=== PATIENT | male | born 1950 | race Caucasian/White ===

== ENCOUNTER 2020-03-12 13:25 | Inpatient (IN) | payer MEDICARE, BC ==
[2020-03-11 21:00] VITALS: BP 160/74
[~2020-03-12] VITALS: Ht 177.8 cm; Wt 86.4 kg
[2020-03-12] MEDS ORDERED: PANTOPRAZOLE 40 MG 10ML VIAL IV STA (13:48)
[2020-03-12] MEDS ORDERED: ASPIRIN 81 MG CHEW TAB PO ONE (14:00)
[2020-03-12 14:06] LABS: BASOPHILS # (AUTO) 0.1 (0.0-0.1); BASOPHILS % 0.6 % (0.0-1.0); EOSINOPHILS # (AUTO) 0.2 (0.0-0.4); EOSINOPHILS % 2.2 % (0.0-6.0); HEMATOCRIT 47.7 % (38.2-49.6); HEMOGLOBIN 15.7 g/dL (14.0-18.0); INR 0.91; LYMPHOCYTES # (AUTO) 1.6 (1.0-3.2); LYMPHOCYTES % 19.9 % (18.0-39.1); MEAN CORPUSCULAR HEMOGLOBIN 29.5 pg (28-32); MEAN CORPUSCULAR HGB CONC 32.9 g/dL (31-35); MEAN CORPUSCULAR VOLUME 89.7 fL (81-99); MONOCYTES # (AUTO) 0.4 (0.2-0.8); MONOCYTES % 5.1 % (4.4-11.3); NEUTROPHILS # (AUTO) 5.9 (2.1-6.9); NEUTROPHILS % 71.6 % (38.7-80.0); PLATELET COUNT 262 x10e3/uL (140-360); PROTHROMBIN TIME 12.7 seconds (11.9-14.5); RED BLOOD COUNT 5.32 x10e6/uL (4.3-5.7); RED CELL DISTRIBUTION WIDTH 13.5 % (11.7-14.4)
[2020-03-12 14:15] LABS: ALANINE AMINOTRANSFERASE 31 IU/L (0-55); ALBUMIN 4.7 g/dL (3.5-5.0); ALBUMIN/GLOBULIN RATIO 1.4 (0.8-2.0); ALKALINE PHOSPHATASE 77 IU/L (40-150); ANION GAP 14.7 mmol/L (8-16); CALCIUM 9.4 mg/dL (8.4-10.2); CARBON DIOXIDE 26 mmol/L (22-29); CHLORIDE 102 mmol/L (98-107); CREATINE KINASE 88 IU/L (30-200); CREATININE, SERUM 1.11 mg/dL (0.72-1.25); EST GLOMERULAR FILTRATION RATE > 60 ML/MIN (60-); GLUCOSE 152 mg/dL (74-118); MAGNESIUM 2.2 MG/DL (1.3-2.1); POTASSIUM 3.7 mmol/L (3.5-5.1); SODIUM 139 mmol/L (136-145)
[2020-03-12 14:20] LABS: BLOOD UREA NITROGEN < 2 mg/dL (7-26); BUN/CREATININE RATIO 2 (6-25)
[2020-03-12] MEDS ORDERED: FAMOTIDINE 20 MG/2 ML VIAL IV SCH (15:45)
[2020-03-12] MEDS ORDERED: ONDANSETRON HCL INJ 2MG/ML 2ML 2 MG/ML VIAL IV PRN (15:45)
[2020-03-12] MEDS ORDERED: NITROGLYCERIN 0.4 MG SUBL SL PRN (15:45)
[2020-03-12] MEDS ORDERED: MORPHINE SULFATE INJ 2 MG/ML SYR IV PRN (15:45)
[2020-03-12] MEDS ORDERED: HYDRALAZINE HCL 20 MG/ML VIAL IV PRN (17:00)
[2020-03-12] MEDS ORDERED: ACETAMINOPHEN 325 MG TAB PO PRN (17:00)
[2020-03-12] MEDS ORDERED: POLYETHYLENE GLYCOL 3350 17 GM PACK PO PRN (17:00)
[2020-03-12] MEDS ORDERED: TEMAZEPAM 7.5 MG CAP PO PRN (17:00)
[2020-03-12] MEDS ORDERED: CLOPIDOGREL BISULFATE 75 MG TAB PO ONE (18:55)
[2020-03-12] MEDS: DOCUSATE SODIUM 100 MG CAP PO SCH (20:00)
[2020-03-12] MEDS ORDERED: AMLODIPINE BESY10 MG PO (20:13)
[2020-03-12] MEDS: FAMOTIDINE 20 MG/2 ML VIAL IV SCH (20:14)
[2020-03-12 20:22] VITALS: BP 160/74
[2020-03-12] MEDS ORDERED: TEMAZEPAM 15 MG CAP PO PRN (21:00)
[2020-03-12 23:50] LABS: CREATINE KINASE 62 IU/L (30-200)
[2020-03-13] VITALS (12 sets, daily range): BP systolic 108–149; BP diastolic 59–77
[2020-03-13 06:43] LABS: BASOPHILS # (AUTO) 0.1 (0.0-0.1); BASOPHILS % 0.7 % (0.0-1.0); EOSINOPHILS # (AUTO) 0.3 (0.0-0.4); EOSINOPHILS % 4.3 % (0.0-6.0); HEMATOCRIT 43.4 % (38.2-49.6); HEMOGLOBIN 14.1 g/dL (14.0-18.0); LYMPHOCYTES % 30.4 % (18.0-39.1); MEAN CORPUSCULAR HEMOGLOBIN 28.6 pg (28-32); MEAN CORPUSCULAR HGB CONC 32.5 g/dL (31-35); MONOCYTES # (AUTO) 0.8 (0.2-0.8); MONOCYTES % 11.3 % (4.4-11.3); NEUTROPHILS # (AUTO) 3.6 (2.1-6.9); PLATELET COUNT 243 x10e3/uL (140-360); RED BLOOD COUNT 4.93 x10e6/uL (4.3-5.7); RED CELL DISTRIBUTION WIDTH 13.8 % (11.7-14.4)
[2020-03-13 07:15] LABS: MAGNESIUM 2.1 MG/DL (1.3-2.1); PHOSPHORUS 2.7 MG/DL (2.3-4.7)
[2020-03-13 07:21] LABS: ALANINE AMINOTRANSFERASE 27 IU/L (0-55); ALBUMIN 4.1 g/dL (3.5-5.0); ALBUMIN/GLOBULIN RATIO 1.5 (0.8-2.0); ALKALINE PHOSPHATASE 66 IU/L (40-150); ANION GAP 13.5 mmol/L (8-16); BLOOD UREA NITROGEN 18 mg/dL (7-26); BUN/CREATININE RATIO 16 (6-25); CALCIUM 8.7 mg/dL (8.4-10.2); CARBON DIOXIDE 25 mmol/L (22-29); CHLORIDE 106 mmol/L (98-107); CREATININE, SERUM 1.16 mg/dL (0.72-1.25); EST GLOMERULAR FILTRATION RATE > 60 ML/MIN (60-); GLUCOSE 105 mg/dL (74-118); POTASSIUM 3.5 mmol/L (3.5-5.1); SODIUM 141 mmol/L (136-145)
[2020-03-13 07:35] LABS: THYROID STIMULATING HORMONE 2.281 uIU/mL (0.350-4.940)
[2020-03-13 07:43] LABS: CHOL/HDL RATIO 3.7 (3.9-4.7); CHOLESTEROL 215 MD/DL (0-199); HDL CHOLESTEROL 58 MG/DL (40-60); LDL CHOLESTEROL 132 MG/DL (60-130); TRIGLYCERIDES 123 MG/DL (0-149)
[2020-03-13 07:49] LABS: CREATINE KINASE 45 IU/L (30-200)
[2020-03-13] MEDS: DOCUSATE SODIUM 100 MG CAP PO SCH ×2 (09:00→16:41)
[2020-03-13] MEDS ORDERED: ASPIRIN 81 MG ENTERIC COATED PO SCH (09:00)
[2020-03-13] MEDS: FAMOTIDINE 20 MG/2 ML VIAL IV SCH (09:20)
[2020-03-13] MEDS ORDERED: LIDOCAINE HCL 2% LOCAL 20 ML VIAL ONE (10:21)
[2020-03-13] MEDS ORDERED: IOPAMIDOL 370 MG/ML 200 ML INFUS..BTL INJ ONE (10:21)
[2020-03-13] MEDS ORDERED: FENTANYL CITRATE/PF 100MCG/2 ML INJ ONE (10:21)
[2020-03-13] MEDS ORDERED: HEPARIN SOD/SOD CHLORIDE 2,000 ML ONE (10:21)
[2020-03-13] MEDS ORDERED: MIDAZOLAM HCL 2 MG/2 ML VIAL ONE (10:21)
[2020-03-13] MEDS ORDERED: SODIUM CHLORIDE 0.9% 1000ML 1,000 ML ONE (10:22)
[2020-03-13] MEDS ORDERED: HYDRALAZINE HCL 20 MG/ML VIAL ONE (11:29)
[2020-03-13 15:16] LABS: CREATINE KINASE 43 IU/L (30-200)
[2020-03-13] MEDS ORDERED: ATORVASTATIN CA10 MG PO (16:16)
[2020-03-13] MEDS ORDERED: ASPIRIN EC81 MG PO (16:16)
[2020-03-13] MEDS ORDERED: HYDROCHLOROTHIA25 MG PO (16:16)
[2020-03-13] MEDS ORDERED: COLACE100 MG PO (16:16)
[2020-03-13] MEDS ORDERED: NORVASC5 MG PO (16:16)
[2020-03-13] MEDS ORDERED: AMLODIPINE BESYLATE 10 MG TAB PO SCH (17:00)
[2020-03-13] MEDS ORDERED: ATORVASTATIN 20 MG TAB PO SCH (21:00)
[2020-03-14] MEDS ORDERED: AMLODIPINE BESYLATE 5 MG TAB PO SCH (09:00)
== END 2020-03-13 18:45 | disposition home or self-care (01) | DRG 287 ==
LOC: ER 13:46 → ERHOLD 15:42 → MED/SURG3 18:36
PROVIDERS: ADMIT Internal Medicine; ATTEND Internal Medicine
PROC: 4A023N7 Measurement of Cardiac Sampling and Pressure, Left Heart, Percutaneous Approach (ICD-10-PCS; principal; 2020-03-13)
PROC: B2111ZZ Fluoroscopy of Multiple Coronary Arteries using Low Osmolar Contrast (ICD-10-PCS; 2020-03-13)
PROC: B2151ZZ Fluoroscopy of Left Heart using Low Osmolar Contrast (ICD-10-PCS; 2020-03-13)
DX: I25.10 Atherosclerotic heart disease of native coronary artery without angina pectoris (principal); I10 Essential (primary) hypertension; K21.9 Gastro-esophageal reflux disease without esophagitis; Z87.891 Personal history of nicotine dependence; Z82.49 Family history of ischemic heart disease and other diseases of the circulatory system; Z88.2 Allergy status to sulfonamides; Z88.8 Allergy status to other drugs, medicaments and biological substances; R42 Dizziness and giddiness; R73.9 Hyperglycemia, unspecified; E83.42 Hypomagnesemia; E87.6 Hypokalemia; E78.5 Hyperlipidemia, unspecified; Z20.828 Contact with and (suspected) exposure to other viral communicable diseases
CPT/HCPCS: 36415; 70450; 71045; 80053; 80061; 82550; 82553; 83036; 83735; 83880; 84100; 84443; 84484; 85025; 85610; 85730; 93005; 93306; 93458; 93880; 99152; 99153; 99284; J0360; J2001; J2250; J3010; J7030; Q9967; U0002